=== PATIENT | male | born 1980 | race Caucasian/White ===

== ENCOUNTER 2016-07-24 09:24 | Emergency (ER) | payer OTHER ==
--- NOTE | 2016-07-24 09:34 | ED EKG INTERP ---
EKG Interpretation - EKG Time of EKG reading by physician:: 09:26 EKG Read and Signed by:: Christo Landrum EKG Interpretation (*Must complete 3 of following elements*): Abnormal Rate: 90 Rhythm: normal sinus rhythm Comments: incomplete RBBB Attestation - Scribe Verification/Attestation Scribe:: Na Suero Acting as Scribe for:: Christo Landrum Scribe documention review:: This chart was documented by a scribe and accurately reflects the service the provider performed and the decisions made by the provider.
[2016-07-24 10:18] LABS: MANUAL DIFF NEEDED? NO
[2016-07-24 10:21] LABS: BASO% 0.4 % (0.0-0.8); EOS# 0.31 X1000 (0.0-0.7); EOS% 2.8 % (0.0-10.0); HEMATOCRIT 46.4 % (42.0-52.0); HEMOGLOBIN 15.9 g/dL (14.0-18.0); IMM GRAN# 0.01 X1000 (0.0-0.04); IMM GRAN% 0.1 % (0.0-0.5); LYMPH# 2.23 X1000 (1.2-3.4); LYMPH% 20.3 % (20.5-51.1); MCH 30.2 PG (27-31); MCHC 34.3 g/dL (33-37); MONO# 0.96 X1000 (0.11-0.59); MONO% 8.8 % (1.7-9.3); MPV 11.3 FL (7.4-10.4); NEUT% 67.6 % (42.2-75.2); PLT 237 X1000 (130-400); RBC 5.27 XMIL (4.7-6.1)
[2016-07-24 10:30] LABS: AGAP 7; ALBUMIN 4.4 g/dL (3.5-5.0); ALKALINE PHOSPHATASE 65 U/L (32-122); BUN 23 mg/dL (8-22); CALCIUM 9.2 mg/dL (8.8-10.2); CHLORIDE 105 mmol/L (98-107); COSMO 280; GOT 23 U/L (10-34); GPT 20 U/L (10-44); LIPASE 30 U/L (13-60); POTASSIUM 4.3 mmol/L (3.5-5.1); SODIUM 138 mmol/L (136-145); TCO2 26 mmol/L (25-35); TOTAL PROTEIN 6.8 g/dL (6.3-8.3)
[2016-07-24] MEDS ORDERED: ZOFRAN ODT PO ONE (10:34)
[2016-07-24] MEDS ORDERED: NORCO-5 PO ONE (10:34)
[2016-07-24] MEDS ORDERED: NS 1,000 ML IV ONE (10:34)
--- NOTE | 2016-07-24 10:34 | EKG Report ---
Test Performed on : 07/24/2016 09:26:21 AM Test Reason : upper gi pain Blood Pressure : / mmHG Vent. Rate : 090 BPM Atrial Rate : 090 BPM P-R Int : 130 ms QRS Dur : 102 ms QT Int : 378 ms P-R-T Axes : 070 041 067 degrees QTc Int : 462 ms Normal sinus rhythm. Incomplete right bundle branch block Borderline ECG No previous ECGs available Unconfirmed Result
--- NOTE | 2016-07-24 10:51 | Diag Imaging Result Document ---
PROCEDURE NAME: FLAT/UPRIGHT ABD/1 VIEW CHEST - 07/24/2016 FLAT AND UPRIGHT WITH CHEST, FOUR VIEWS: FINDINGS: The lungs are well expanded. No pneumonia. No cardiomegaly. No free air beneath the diaphragm. No bowel obstruction. No organomegaly. No abnormal abdominal or pelvic calcifications. IMPRESSION: No acute abnormality.
--- NOTE | 2016-07-24 11:33 | PROVIDER DOCUMENTATION ---
HPI-Musculoskeletal Pain/Inj - GENERAL Chief Complaint: Epigastric Pain Stated Complaint: CHEST PAIN/EPIGASTRIC PAIN Time Seen by Provider: 07/24/16 10:11 Source: patient - HX OF PRESENT ILLNESS-MUSKULOSKELTAL Nature of Presenting Problem: This pt presents today c complaints of chest wall pain and muscle cramping that began this morning while at work. He reports that he does a lot of heavy lifting at his job and does not drink enough fluids. He denies any SOB. He states that the pain is worsened with palpation and deep inspiration. No other issues or complaints. Pt is in NAD. Quality of Pain: reports: aching, cramping Severity in ED: mild Onset/Duration: 1-3 hours ago Timing: still present Modifying Factors: improves with: palpation, other (deep breathing) Any recent injury?: No Locality of Occurance: Work Similar Symptoms Previously?: No Recently seen or treated by another doctor?: No Review of Systems - Adult - REVIEW OF SYSTEMS - ADULT Constitutional: reports: no symptoms reported. denies: chills, fever Eyes: reports: no symptoms reported. denies: discharge, dry eyes Ears, Nose, Mouth & Throat: reports: no symptoms reported. denies: ear discharge, ear pain Cardiovascular: reports: chest pain (MSK). denies: irregular heart rate, orthopnea, palpitations Respiratory: reports: no symptoms reported. denies: chronic cough, cough Gastrointestinal: reports: no symptoms reported. denies: abdominal pain, hematemesis Genitourinary: reports: no symptoms reported. denies: dysuria, discharge Musculoskeletal: reports: muscle aches. denies: bone pain, back pain Integumentary: reports: no symptoms reported. denies: hives, hair loss Neurological: reports: no symptoms reported. denies: ataxia, dizziness/vertigo Psychiatric: reports: no symptoms reported. denies: anxiety, anti-depressant use Endocrine: reports: no symptoms reported Hematologic/Lymphatic: reports: no symptoms reported Allergic/Immunologic: reports: no symptoms reported All Other Systems: Reviewed and Negative Past History - Adult - PAST MEDICAL HISTORY-ADULT Review of Records: reports: Old Records Reviewed, Nursing Assessment Review, Medications Reviewed, Social history reviewed & non-contributory. Major Childhood Illnesses: reports: denies history Cardiovascular: reports: denies history Respiratory: reports: denies history Gastrointestinal: reports: denies history Obstetrical/Gynecological: reports: denies history Genitourinary: reports: denies history Musculoskeletal: reports: denies history Neurological: reports: denies history Endocrine/Immune: reports: denies history Other Conditions: reports: denies history - PRIOR SURGERIES/PROCEDURES Surgical/Procedure History: reports: none - IMMUNIZATION STATUS Childhood Immunizations: See Nurse Assessment Flu Vaccine: See Nurse Assessment - FAMILY HISTORY Family History: reviewed, not pertinent Physical Exam-Injury Related - Physical Exam-Injury Related Initial Vital Signs Reviewed: Yes General Appearance: appears well, alert, no apparent distress Eyes: PERRL/EOMI, pink conjunctivae Head, Ears, Nose, Mouth & Throat: normocephalic/atraumatic, moist mucous membranes, normal ENT inspection Neck: non-tender, full range of motion, supple, normal inspection Respiratory: chest non-tender, lungs clear, normal breath sounds, no pleuratic chest pain, no respiratory distress, no accessory muscle use. negative: respiratory distress, decreased breath sounds, accessory muscle use, crackles, rales, rhonchi, stridor, wheezing Cardiovascular: normal peripheral pulses, regular rate, rhythm, no edema, no gallop, no JVD, no murmur Chest/Breast: tenderness (to palpation) Abdominal Exam: normal bowel sounds, non tender, soft, no organomegaly, no pulsatile mass Back Exam: normal inspection, no CVA tenderness, no vertebral tenderness Extremity: normal range of motion, non-tender, normal gait, normal inspection. negative: pulse deficit, pedal edema, swelling, tenderness Integumentary: normal color, warm/dry, blanching Neurologic: grossly normal, no motor/sensory deficits Psych/Mental Status: normal mood/affect, normal thought content, normal thought process, oriented x 3 - Gl[place]ow Coma Score Best Eye Response ([place]): (4) open spontaneously Best Verbal Response ([place]): (5) oriented Best Motor Response ([place]): (6) obeys commands [place] Total: 15 Progress - PLAN OF CARE/RESULTS Progress/Plan/Lab Results: Laboratory Tests 07/24/16 07/24/16 07/24/16 09:53 09:53 09:53 WBC RBC Hgb Hct MCV MCH MCHC RDW Std Deviation Plt Count MPV Immature Gran % (Auto) Neut % (Auto) Lymph % (Auto) [place] % (Auto) Eos % (Auto) Baso % (Auto) Immature Gran # (Auto) Neut # (Auto) Lymph # (Auto) [place] # (Auto) Eos # (Auto) Baso # (Auto) Sodium 138 Potassium 4.3 Chloride 105 Carbon Dioxide 26 Anion Gap 7 BUN 23 H Creatinine 1.3 H Estimated GFR/1.73 m2 > 60 BUN/Creatinine Ratio 18 Glucose 104 Calculated Osmolality 280 Calcium 9.2 Total Bilirubin 0.30 AST 23 ALT 20 Alkaline Phosphatase 65 Creatine Kinase 144 Troponin T < 0.010 Total Protein 6.8 Albumin 4.4 Globulin 2.0 Albumin/Globulin Ratio 2.0 Lipase 30 07/24/16 09:53 WBC 10.97 H RBC 5.27 Hgb 15.9 Hct 46.4 MCV 88.0 MCH 30.2 MCHC 34.3 RDW Std Deviation 13.3 Plt Count 237 MPV 11.3 H Immature Gran % (Auto) 0.1 Neut % (Auto) 67.6 Lymph % (Auto) 20.3 L [place] % (Auto) 8.8 Eos % (Auto) 2.8 Baso % (Auto) 0.4 Immature Gran # (Auto) 0.01 Neut # (Auto) 7.42 H Lymph # (Auto) 2.23 [place] # (Auto) 0.96 H Eos # (Auto) 0.31 Baso # (Auto) 0.04 Sodium Potassium Chloride Carbon Dioxide Anion Gap BUN Creatinine Estimated GFR/1.73 m2 BUN/Creatinine Ratio Glucose Calculated Osmolality Calcium Total Bilirubin AST ALT Alkaline Phosphatase Creatine Kinase Troponin T Total Protein Albumin Globulin Albumin/Globulin Ratio Lipase Orders Category Date Time Status flat [FLAT/UPRIGHT ABD/1 VIEW CHEST] [RAD] Stat Exams 07/24/16 10:11 Draft CBC WITH DIFF [HEME] Stat Lab 07/24/16 09:53 Completed CK PROFILE [SP CHEM] Stat Lab 07/24/16 09:53 Completed COMPREHENSIVE METABOLIC PANEL [CHEM] Stat Lab 07/24/16 09:53 Completed LIPASE [CHEM] Stat Lab 07/24/16 09:53 Completed TROPONIN T Stat Lab 07/24/16 09:53 Completed 0.9% Sodium Chloride Inj [Ns] 1,000 ml Med 07/24/16 10:34 Active IV 999 mls/hr Hydrocodone/APAP 5 mg/325 mg [[place]-5] Med 07/24/16 10:34 Discontinued 1 each PO NOW ONE Ondansetron Odt [Zofran Odt] Med 07/24/16 10:34 Discontinued 4 mg PO NOW ONE EKG [EKG] Stat Ther 07/24/16 09:43 Draft Vital Signs Temp Pulse Resp BP Pulse Ox 07/24/16 09:29 97.3 F L 88 16 123/083 98 sulfamethoxazole [From Bactrim] Adverse Reaction (Mild, Verified 07/24/16 09:33) makes genitals swell up trimethoprim [From Bactrim] Adverse Reaction (Mild, Verified 07/24/16 09:33) makes genitals swell up No Home Medications 07/24/16 Laboratory 07/24/16 07/24/16 07/24/16 09:53 09:53 09:53 WBC 10.97 H RBC 5.27 Hgb 15.9 Hct 46.4 MCV 88.0 MCH 30.2 MCHC 34.3 RDW Std Deviation 13.3 Plt Count 237 MPV 11.3 H Immature Gran % (Auto) 0.1 Neut % (Auto) 67.6 Lymph % (Auto) 20.3 L [place] % (Auto) 8.8 Eos % (Auto) 2.8 Baso % (Auto) 0.4 Immature Gran # (Auto) 0.01 Neut # (Auto) 7.42 H Lymph # (Auto) 2.23 [place] # (Auto) 0.96 H Eos # (Auto) 0.31 Baso # (Auto) 0.04 Sodium 138 Potassium 4.3 Chloride 105 Carbon Dioxide 26 Anion Gap 7 BUN 23 H Creatinine 1.3 H Estimated GFR/1.73 m2 > 60 BUN/Creatinine Ratio 18 Glucose 104 Calculated Osmolality 280 Calcium 9.2 Total Bilirubin 0.30 AST 23 ALT 20 Alkaline Phosphatase 65 Creatine Kinase 144 Troponin T Total Protein 6.8 Albumin 4.4 Globulin 2.0 Albumin/Globulin Ratio 2.0 Lipase 30 07/24/16 09:53 WBC RBC Hgb Hct MCV MCH MCHC RDW Std Deviation Plt Count MPV Immature Gran % (Auto) Neut % (Auto) Lymph % (Auto) [place] % (Auto) Eos % (Auto) Baso % (Auto) Immature Gran # (Auto) Neut # (Auto) Lymph # (Auto) [place] # (Auto) Eos # (Auto) Baso # (Auto) Sodium Potassium Chloride Carbon Dioxide Anion Gap BUN Creatinine Estimated GFR/1.73 m2 BUN/Creatinine Ratio Glucose Calculated Osmolality Calcium Total Bilirubin AST ALT Alkaline Phosphatase Creatine Kinase Troponin T < 0.010 Total Protein Albumin Globulin Albumin/Globulin Ratio Lipase Pt is feeling much better. Will d/c home. He is in agreement. - XRAY 1 XRAY Study: Chest, Abdomen XRAY Interpretation: nad Departure - Departure Time of Disposition Order: 11:32 DIAGNOSIS: Anterior chest wall pain, Dehydration Disposition: HOME 01 Certified Medical Emergency: Emergent Condition: Good Additional Instructions: Take medication as prescribed. As we discussed, you need to stay well hydrated while at work. Follow up with your primary care provider. Return to the ER for any new or worsening symptoms. ED Follow Up Instructions: You have been treated by a care provider in the Emergency Department. These instructions are being provided to you so you can have an understanding of how to care for yourself upon discharge. Upon discharge from the Emergency Department, you are responsible for making arrangements for follow-up care by a physician of your choice. Take all prescribed medications as directed. Return to the Emergency Department immediately for any new or worsening symptoms. You may call the Physician Referral phone number at [phone] to obtain a list of Physicians who are taking new patients. Prescriptions: Meloxicam [Mobic] 7.5 mg PO DAILY PRN PRN #15 tablet PRN Reason: Pain Attestation - Physician/ DANTE Attestation Patient care was provided by Advanced Practice Provider:: Yes Advanced Practice Provider:: Mp Burkett Advanced Practice Provider documentation review:: The Mid-level provider documentation, treatment plan and medical decision making was reviewed by the physician who agrees with all treatment and medical decision making by the MLP.
[2016-07-24 12:15] VITALS: BP 127/086
== END 2016-07-24 12:14 | disposition home or self-care (01) ==
LOC: P.ED 09:24
DX: R07.89 Other chest pain (principal); E86.0 Dehydration; R94.31 Abnormal electrocardiogram [ECG] [EKG]; R10.13 Epigastric pain; M79.1 Myalgia; R07.1 Chest pain on breathing
CPT/HCPCS: 36415; 74022; 80053; 82550; 83690; 84484; 85025; 93005; 96360; J7030